=== PATIENT | female | born 1955 | race Native Hawaiian/Other Pacific Islander ===

== ENCOUNTER 2022-02-13 09:57 | Outpatient (CLI) | payer OTHER ==
[~2022-02-13] VITALS: Ht 170.2 cm; Wt 99.8 kg
[2022-02-13 10:10] VITALS: BP 148/68; TEMP 98.6
[2022-02-13 10:53] VITALS: BP 126/67; TEMP 98.4
== END 2022-02-13 18:53 | disposition home or self-care (01) ==
LOC: EDBD 09:57 → INF 09:57
PROVIDERS: ATTEND Internal Medicine
DX: M81.0 Age-related osteoporosis without current pathological fracture (principal)
CPT/HCPCS: 36415; 82310; 96372; J0897

== ENCOUNTER 2022-08-23 09:51 | Outpatient (CLI) | payer OTHER ==
[~2022-08-23] VITALS: Ht 170.2 cm; Wt 98.9 kg
[2022-08-23 10:00] VITALS: BP 154/72; TEMP 98.2
[2022-08-23 10:30] VITALS: BP 141/66; TEMP 98.1
== END 2022-08-23 19:43 | disposition home or self-care (01) ==
LOC: INF 09:51
PROVIDERS: ATTEND Internal Medicine
DX: M81.0 Age-related osteoporosis without current pathological fracture (principal)
CPT/HCPCS: 36415; 82310; 96372; J0897